=== PATIENT | female | born 1955 | race Caucasian/White ===

== ENCOUNTER → 2016-05-02 | Outpatient (CLI) | payer BC ==
[~2016-05-02] MED LIST: AMITRIPTYLINE H10 M1 PO; ANTIVERT 25MG25 MG PO; ATIVAN 0.50.5 MG/TAB PO; ATIVAN0.5 MG PO; CALCIUM 600600 MG PO; CHEWABLE-V1 TAB.CHEW PO; LEVOXYL0.112 MG PO; LISINOPRIL10 MG PO; LORTAB 5/500 501 TAB PO; PRILOSEC 20MG20 MG PO; PRINIVIL10 MG PO; ZOFRAN 4MG T4 MG/TAB PO; ZOLOFT50 MG PO
== END ==
LOC: COL.RAD 12:00
DX: C73 Malignant neoplasm of thyroid gland (principal); E89.0 Postprocedural hypothyroidism

== ENCOUNTER → 2016-10-25 | Outpatient (CLI) | payer BC | LOC: MC.RAD 16:16 | DX: Z12.31 Encounter for screening mammogram for malignant neoplasm of breast (principal) ==

== ENCOUNTER 2016-11-22 23:18 | Emergency (ER) | payer BC ==
[~2016-11-22] VITALS: Ht 162.6 cm; Wt 77.3 kg
[2016-11-22 23:20] VITALS: TEMP 97.9
[2016-11-22] MEDS ORDERED: TOPROL XL 25MG25 MG PO (23:26)
[2016-11-23 00:10] LABS: BASO # 0.1 (0.0-0.2); BASO % 0.7 % (0.0-2.0); EOS # 0.2 (0.0-0.7); EOS % 1.1 % (0-4.0); GRAN # 12.9 (1.4-6.5); GRAN % 84.8 % (42.2-75.2); HEMATOCRIT 42.5 % (37.0-47.0); HEMOGLOBIN 14.2 g/dl (12.5-16.0); LYMPH # 1.2 (1.2-3.4); LYMPH % 7.7 % (20.0-51.0); MEAN CELL VOLUME 86 fl (80.0-100.0); MEAN CORPUSCULAR HEMOGLOBIN 29 pg (27.0-31.0); MEAN CORPUSCULAR HGB CONC 33 g/dl (33.0-37.0); MEAN PLATELET VOLUME 10.5 fl (7.4-10.4); MONO # 0.8 (0.1-0.6); MONO % 5.4 % (1.7-9.3); PLATELET COUNT 299 K/mm3 (130-400); RED BLOOD COUNT 4.95 M/mm3 (4.10-5.30); WHITE BLOOD COUNT 15.3 K/mm3 (4.8-10.8)
[2016-11-23 00:23] LABS: ALANINE AMINOTRANSFERASE 29 U/L (9-52); ALBUMIN 4.9 gm/dL (3.5-5.0); ALKALINE PHOSPHATASE 113 U/L (50-136); ANION GAP 14 mmol/L (7-16); BILIRUBIN,TOTAL 0.7 mg/dL (0.0-1.0); BLOOD UREA NITROGEN 20 mg/dL (7-17); CALCIUM 7.7 mg/dL (8.4-10.2); CARBON DIOXIDE 23 mmol/L (22-30); CHLORIDE 103 mmol/L (98-107); CREATININE, serum 1.19 mg/dL (0.52-1.25); GLUCOSE 127 mg/dL (74-106); LIPASE 70 U/L (23-300); POTASSIUM 4.3 mmol/L (3.4-5.0); SODIUM 141 mmol/L (137-145); TOTAL PROTEIN 8.6 gm/dL (6.4-8.2)
[2016-11-23 00:24] LABS: C-REACTIVE PROTEIN < 0.5 mg/dL (0.0-0.9)
[2016-11-23] MEDS ORDERED: ZOFRAN 4MG T4 MG/TAB PO (02:36)
[2016-11-23 02:55] LABS: COLLECTION METHOD CLEAN CATCH
[2016-11-23 03:00] LABS: MUCOUS Present /lpf; PH 5 (5-8); SQUAMOUS EPITHELIAL None Seen /hpf; URINE APPEARANCE Clear; URINE BACTERIA None Seen /hpf; URINE BILIRUBIN Negative (NEGATIVE); URINE BLOOD 1+ (NEGATIVE); URINE COLOR Yellow; URINE GLUCOSE Negative (NEGATIVE); URINE KETONE Negative (NEGATIVE); URINE LEUKOCYTE ESTERASE Negative (NEGATIVE); URINE PROTEIN(semi-quant) Negative (NEGATIVE); URINE RBC 0-2 /hpf; URINE UROBILINOGEN Negative (NEGATIVE); URINE WBC 0-2 /hpf
[2016-11-23 03:27] VITALS: BP 137/58; PULSE 88
== END 2016-11-23 03:29 | disposition home or self-care (01) ==
LOC: COL.ER 23:18
PROVIDERS: Emergency Medicine
DX: E83.51 Hypocalcemia (principal); R11.10 Vomiting, unspecified; R19.7 Diarrhea, unspecified; I10 Essential (primary) hypertension; Z90.89 Acquired absence of other organs; Z90.710 Acquired absence of both cervix and uterus
CPT/HCPCS: J2405; J2550; J7030; Q9967

== ENCOUNTER → 2017-12-12 | Outpatient (CLI) | payer BC ==
[~2017-12-12] MED LIST changes: +TOPROL XL 25MG25 MG PO
== END ==
LOC: MC.RAD 11-09 10:20
DX: Z12.31 Encounter for screening mammogram for malignant neoplasm of breast (principal)

== ENCOUNTER → 2019-03-08 | Outpatient (CLI) | payer BC | LOC: MC.RAD 10:14 | DX: Z12.31 Encounter for screening mammogram for malignant neoplasm of breast (principal) ==

== ENCOUNTER → 2020-05-13 | Outpatient (CLI) | payer BC | LOC: MC.RAD 14:36 | DX: Z12.31 Encounter for screening mammogram for malignant neoplasm of breast (principal) ==

== ENCOUNTER → 2021-07-08 | Outpatient (CLI) | payer MEDICARE, MEDICAID | LOC: MC.RAD 11:24 | DX: Z12.31 Encounter for screening mammogram for malignant neoplasm of breast (principal) ==

== ENCOUNTER → 2023-08-18 | Outpatient (CLI) | payer MEDICARE | LOC: MC.RAD 11:15 | DX: Z12.31 Encounter for screening mammogram for malignant neoplasm of breast (principal) ==